=== PATIENT | female | born 1945 | race Caucasian/White ===

== ENCOUNTER 2017-01-15 16:56 | Inpatient (IN) | payer OTHER ==
--- NOTE | 2017-01-15 17:05 | PDOC ---
History of Present Illness <Erika Reddy - Last Filed: 01/15/17 18:18> - General History Source: Patient Exam Limitations: Other (altered mental status) - History of Present Illness Initial Comments: 01/15/17 17:34 The patient is a 72 year old female with a significant past medical history of hypertension, hyperlipidemia, and CAD s/p stent, brought by ambulance to the Emergency Department with altered mental status s/p fall just prior to arrival. Patient reports that she was going grocery store when she tripped on something in the road and fell. She denies loss of consciousness, and denies any pain. She admits that an ambulance was called and an ambulance brought her to the ED. Patient is poor historian due to altered mental status. The patient denies neck pain, or back pain. Patient denies head trauma, or loss of consciousness. Patient denies lightheadedness, or dizziness. Patient denies nausea, vomiting, and diarrhea. <Sirisha Lombardo - Last Filed: 01/15/17 18:56> <Marcelina Moise - Last Filed: 01/15/17 19:32> - General Stated Complaint: FALL Time Seen by Provider: 01/15/17 17:04 Past History - Past Medical History Cardiac Disorders: Yes (CAD WITH STENT) HTN: Yes Hypercholesterolemia: Yes - Surgical History Cardiac Surgery: Yes (STENT) - Immunization History Immunization Up to Date: No - Psycho/Social/Smoking Cessation Hx Anxiety: No Suicidal Ideation: No Smoking Status: No Smoking History: Never smoked Have you smoked in the past 12 months: No Number of Cigarettes Smoked Daily: 0 Hx Alcohol Use: No Drug/Substance Use Hx: No Substance Use Type: None <Erika Reddy - Last Filed: 01/15/17 18:18> <Sirisha Lombardo - Last Filed: 01/15/17 18:56> <Marcelina Moise - Last Filed: 01/15/17 19:32> - Past Medical History Allergies/Adverse Reactions: Allergies Allergy/AdvReac Type Severity Reaction Status Date / Time No Known Allergies Allergy Verified 01/15/17 17:07 Home Medications: Ambulatory Orders Unobtainable [Unobtainable] 01/15/17 Review of Systems - Review of Systems Able to Perform ROS?: Yes Comments:: 01/15/17 17:34 CONSTITUTIONAL: Absent: fever, no chills, no fatigue EYES: Absent: visual changes ENT: Absent: ear pain, no sore throat CARDIOVASCULAR: Absent: chest pain, no palpitations RESPIRATORY: Absent: cough, no SOB GI: Absent: abdominal pain, no nausea, no vomiting, no constipation, no diarrhea GENITOURINARY: Absent: dysuria, no frequency, no hematuria MUSCULOSKELETAL: Absent: back pain, no arthralgia, no myalgia SKIN: Absent: rash NEURO: Absent: headache <Sirisha Lombardo - Last Filed: 01/15/17 18:56> *Physical Exam - Vital Signs Last Vital Signs Temp Pulse Resp BP Pulse Ox 98.6 F 83 18 144/76 98 01/15/17 17:07 01/15/17 17:07 01/15/17 17:07 01/15/17 17:07 01/15/17 17:07 - Physical Exam Comments: 01/15/17 17:35 GENERAL: Patient is confused but responding to questions. Well-appearing, well- nourished. No apparent distress. HEENT: Normocephalic, atraumatic. PERRL, EOM intact. CARDIOVASCULAR: Normal S1, S2. Regular rate and rhythm. PULMONARY: Clear to auscultation bilaterally. ABDOMEN: Soft, non-distended, non-tender. EXTREMITIES: Normal ROM in all four extremities. No gross deformities. SKIN: Warm, dry. No rash NEUROLOGICAL: No focal neurological deficits. <Sirisha Lombardo - Last Filed: 01/15/17 18:56> - Vital Signs Last Vital Signs Temp Pulse Resp BP Pulse Ox 98.6 F 83 18 144/76 98 01/15/17 17:07 01/15/17 17:07 01/15/17 17:07 01/15/17 17:07 01/15/17 17:07 <Marcelina Moise - Last Filed: 01/15/17 19:32> ED Treatment Course - LABORATORY CBC & Chemistry Diagram: 01/15/17 17:10 01/15/17 17:10 <Eriak Reddy - Last Filed: 01/15/17 18:18> - LABORATORY CBC & Chemistry Diagram: 01/15/17 17:10 01/15/17 17:10 <Munira,Sirisha - Last Filed: 01/15/17 18:56> - LABORATORY CBC & Chemistry Diagram: 01/15/17 17:10 01/15/17 17:10 - ADDITIONAL ORDERS Additional order review: Laboratory Results 01/15/17 17:10 Sodium 148 H Potassium 3.9 Chloride 112 H Carbon Dioxide 25 Anion Gap 11 BUN 22 H Creatinine 1.2 H Creat Clearance w eGFR 44.16 Random Glucose 105 Calcium 8.8 Total Bilirubin 0.6 AST 28 ALT 34 Alkaline Phosphatase 59 Creatine Kinase 103 Troponin I < 0.02 Total Protein 6.7 Albumin 3.8 01/15/17 17:10 RBC 4.05 MCV 79.5 L MCHC 30.8 L RDW 23.4 H MPV 8.4 Neutrophils % 75.4 Lymphocytes % 19.6 Monocytes % 4.1 Eosinophils % 0.3 Basophils % 0.6 <Marcelina Moise - Last Filed: 01/15/17 19:32> Medical Decision Making - Medical Decision Making 01/15/17 18:18 Pt presents to the ED after found confused on the street after tripping and falling. Patient was alert and oriented x 2 on arrival to the ED and denies complaints. Case discussed with patient's friend, who reports that she has Alzheimer's and is confused at baseline. He will come to the ED to see the patient. Given history of trip and fall, will check CT head and C spine to rule out intracranial or cervical spinal injury. Fall was apparently witnessed by bystanders, and patient reports that it was a mechanical trip and fall--will do EKG and cardiac enzymes and consider admitting paitent for syncope. <Erika Reddy - Last Filed: 01/15/17 18:18> - Medical Decision Making 01/15/17 17:51 Patient's friend was called on patient's cell phone. As per patient's friend, the patient has Alzheimer's and is scheduled to go for a reevaluation with her doctor tomorrow. The patient's friend states that she is scheduled to transition to assisted living within the next two weeks. 01/15/17 18:56 As per patient's friend, patient's 's phone number is - Moises Sarmiento - and patient's daughter's phone number is . As per the patient's friend, the patient's lives in [place], and daughter lives in [facility]. The patient's will be here tomorrow. <Sirisha Lombardo - Last Filed: 01/15/17 18:56> - Medical Decision Making 01/15/17 19:30 Patient Name: Zhane Sarmiento THIS IS A PRELIMINARY REPORT FROM [employer] [employer] OPERATOR EXAM: CT head without contrast IMAGES: 141 DATE OF SERVICE: 2017-01-15 18:04 :09.0 HISTORY:Status post fall. Altered mental status. COMPARISON: CT cervical spine also performed today FINDINGS: 1. There is no evidence of an acute intracranial process, intracranial hemorrhage or mass effect. 2. Ventricular size is concordant with the degree of atrophy. 3. The visualized portions of the orbits, paranasal and mastoid sinuses are notable for partial opacification of the left mastoid sinus. 4. There appears to be a fracture through the mastoid portion of the left temporal bone. 5. There are collections of air in the left temporomandibular joint and left infratemporal fossa likely secondary to a left temporal bone fracture. 6. Left parieto-occipital scalp soft tissue swelling. THIS DOCUMENT HAS BEEN ELECTRONICALLY SIGNED Patient Name: Zhane Sarmiento THIS IS A PRELIMINARY REPORT FROM [facility] [facility] OPERATOR EXAM: CT cervical spine without contrast IMAGES: 302 DATE OF SERVICE: 01-15 18:04:09.0 HISTORY:Status post fall COMPARISON: CT head also performed today FINDINGS: 1. There is no evidence of fracture or subluxation of the cervical spine. 2. Cervical spondylosis with multiple level degenerative facet change. 3. Visualization of detail of the contents of the cervical canal is limited by artifact. 4. There is the appearance of a fracture through the mastoid portion of the left temporal bone with partial opacification of the left mastoid sinus and collections of air in the left temporomandibular joint and left infratemporal fossa. CT temporal bone may be helpful for further evaluation. 5. Calcified pleural plaque formation in the visualized portions of the lung apices bilaterally. THIS DOCUMENT HAS BEEN ELECTRONICALLY SIGNED <Marcelina Moise - Last Filed: 01/15/17 19:32> *DC/Admit/Observation/Transfer <Erika Reddy - Last Filed: 01/15/17 18:18> - Attestations Scribe Attestion: 01/15/17 17:35 Documentation prepared by Sirisha Lombardo, acting as medical research tech for Erika Reddy MD. <Sirisha Lombardo - Last Filed: 01/15/17 18:56> - Discharge Dispostion Admit: Yes <Marcelina Moise - Last Filed: 01/15/17 19:32> Diagnosis at time of Disposition: Fracture of skull with cerebral contusion, Altered mental status - Discharge Dispostion Condition at time of disposition: Guarded
[2017-01-15 17:13] VITALS: BMI 19.1
[2017-01-15 17:50] LABS: BASOPHIL 0.6 % (0-2.0); EOSINOPHIL 0.3 % (0-4.5); MCH 24.5 pg (25.7-33.7); MCHC 30.8 g/dl (32.0-36.0); MEAN CELL VOLUME 79.5 fl (80-96); MEAN PLT VOLUME 8.4 fl (7.5-11.1); NEUTROPHILS 75.4 % (42.8-82.8); PLATELET COUNT 216 K/MM3 (134-434); RDW 23.4 % (11.6-15.6); WHITE BLOOD COUNT 5.5 K/mm3 (4.0-10.0)
[2017-01-15 18:16] LABS: ANISOCYTOSIS 2+; HYPOCHROMIA 1+; MICROCYTOSIS 1+; OVALOCYTES 1+; PLATELET COMMENT2 NO CLOTTING DETECTED; PLATELET ESTIMATE ADEQUATE (NORMAL); POIKILOCYTOSIS 1+; POLYCHROMASIA 1+
[2017-01-15 18:18] LABS: ALBUMIN 3.8 g/dl (3.4-5.0); ANION GAP 11 (8-16); CALCIUM 8.8 mg/dL (8.5-10.1); CO2 25 mmol/L (21-32); CREATININE 1.2 mg/dL (0.55-1.02); GLUCOSE,RANDOM 105 mg/dL (74-106); SGOT/AST 28 U/L (15-37); SGPT/ALT 34 U/L (12-78)
[2017-01-15 18:22] LABS: ALK PHOS 59 U/L (45-117); BILIRUBIN,TOTAL 0.6 mg/dL (0.2-1.0); TOT PROT 6.7 g/dl (6.4-8.2); TROPONIN I < 0.02 ng/ml (0.00-0.05)
--- NOTE | 2017-01-15 19:28 | PN ---
<Tristen Horvath - Last Filed: 01/15/17 19:28> Teaching Attending Note Name of Resident: Dirk Pride ATTENDING PHYSICIAN STATEMENT I saw and evaluated the patient. I reviewed the resident's note and discussed the case with the resident. I agree with the resident's findings and plan as documented. SUBJECTIVE: OBJECTIVE: ASSESSMENT AND PLAN: <Nate Fry - Last Filed: 01/15/17 21:22> Teaching Attending Note ATTENDING PHYSICIAN STATEMENT I saw and evaluated the patient. I reviewed the resident's note and discussed the case with the resident. I agree with the resident's findings and plan as documented. SUBJECTIVE: The patient is a 72 year old female with a past medical history of hypertension , hyperlipidemia, alzheimer's, and CAD s/p stent, BIBA to the Emergency Department with altered mental status s/p fall just prior to arrival. Patient had a mechanical fall on road without loss of consciousness. The patient denied nausea, vomiting and diarrhea. The patient denies neck pain, or back pain. Patient denies lightheadedness, or dizziness. PAST MEDICAL HISTORY: hypertension, hyperlipidemia, alzheimer's, and CAD PAST SURGICAL HISTORY: Cardiac stents FAMILY HISTORY: No pertinent history reported SOCIAL HISTORY: None reported ALLERGIES: NKDA MEDICATIONS: As per note. OBJECTIVE: Last Vital Signs 3 Temp Pulse Resp BP Pulse Ox 98.6 F 83 18 144/76 98 01/15/17 17:07 01/15/17 17:07 01/15/17 17:07 01/15/17 17:07 01/15/17 17:07 Physical Exam: GEN: (+) A&O x1 to person HEENT: NCAT, PERRL CARD: RRR, S1 S2 RESP: CTAB ABD: NT, BWS x4 EXT: - CCE Labs: CBCD 3 WBC 5.5 K/mm3 (4.0-10.0) 01/15/17 17:10 RBC 4.05 M/mm3 (3.60-5.2) 01/15/17 17:10 Hgb 9.9 GM/dL (10.7-15.3) L 01/15/17 17:10 Hct 32.2 % (32.4-45.2) L 01/15/17 17:10 MCV 79.5 fl (80-96) L 01/15/17 17:10 MCHC 30.8 g/dl (32.0-36.0) L 01/15/17 17:10 RDW 23.4 % (11.6-15.6) H 01/15/17 17:10 Plt Count 216 K/MM3 (134-434) 01/15/17 17:10 MPV 8.4 fl (7.5-11.1) 01/15/17 17:10 CMP 3 Sodium 148 mmol/L (136-145) H 01/15/17 17:10 Potassium 3.9 mmol/L (3.5-5.1) 01/15/17 17:10 Chloride 112 mmol/L (98-107) H 01/15/17 17:10 Carbon Dioxide 25 mmol/L (21-32) 01/15/17 17:10 Anion Gap 11 (8-16) 01/15/17 17:10 BUN 22 mg/dL (7-18) H 01/15/17 17:10 Creatinine 1.2 mg/dL (0.55-1.02) H 01/15/17 17:10 Creat Clearance w eGFR 44.16 (>60) 01/15/17 17:10 Calcium 8.8 mg/dL (8.5-10.1) 01/15/17 17:10 Total Bilirubin 0.6 mg/dL (0.2-1.0) 01/15/17 17:10 AST 28 U/L (15-37) 01/15/17 17:10 ALT 34 U/L (12-78) 01/15/17 17:10 Alkaline Phosphatase 59 U/L (45-117) 01/15/17 17:10 Total Protein 6.7 g/dl (6.4-8.2) 01/15/17 17:10 Albumin 3.8 g/dl (3.4-5.0) 01/15/17 17:10 Imaging: EXAM: CT cervical spine without contrast IMAGES: 302 DATE OF SERVICE: 18:04:09.0 HISTORY:Status post fall COMPARISON: CT head also performed today FINDINGS: 1. There is no evidence of fracture or subluxation of the cervical spine. 2. Cervical spondylosis with multiple level degenerative facet change. 3. Visualization of detail of the contents of the cervical canal is limited by artifact. 4. There is the appearance of a fracture through the mastoid portion of the left temporal bone with partial opacification of the left mastoid sinus and collections of air in the left temporomandibular joint and left infratemporal fossa. CT temporal bone may be helpful for further evaluation. 5. Calcified pleural plaque formation in the visualized portions of the lung apices bilaterally. THIS DOCUMENT HAS BEEN ELECTRONICALLY SIGNED Elodia Jamison MD 01/15/2017 18:59 EST EXAM: CT head without contrast IMAGES: 141 DATE OF SERVICE: 2017-01-15 18:04: 09.0 HISTORY:Status post fall. Altered mental status. COMPARISON: CT cervical spine also performed today FINDINGS: 1. There is no evidence of an acute intracranial process, intracranial hemorrhage or mass effect. 2. Ventricular size is concordant with the degree of atrophy. 3. The visualized portions of the orbits, paranasal and mastoid sinuses are notable for partial opacification of the left mastoid sinus. 4. There appears to be a fracture through the mastoid portion of the left temporal bone. 5. There are collections of air in the left temporomandibular joint and left infratemporal fossa likely secondary to a left temporal bone fracture. 6. Left parieto-occipital scalp soft tissue swelling. THIS DOCUMENT HAS BEEN ELECTRONICALLY SIGNED Elodia Jamison MD 18:54 EST EXAM: CHEST X-RAY. IMPRESSION: No official report. ASSESSMENT AND PLAN: The patient is a 72 year old female with a past medical history of hypertension , hyperlipidemia, alzheimer's, and CAD s/p stent, who presented with AMS s/p mechanical fall found to have a left temporal fracture. 1. Left temporal fracture - Vancomycin - Cefepime - Pain control - Type and Screen - Coags - CBC - BMP - CMP - Repeat CT with focus on temporal bone - Neuro checks Q2H - Neurosurgery consult 2. HTN - Currently controlled - Continue with medications 3. HLD - unable to obtain home medications - Avoid HLD medications for now. 4. EMILY ? CKD -Gentle IVF - ID consult 5. Microcytic anemia - Iron studies in AM 6. Alzheimers - Need social work consult for placement Admit to med surg. Documentation prepared by Nate Fry, acting as medical records tech for Dr. Tristen Horvath MD.
[2017-01-15 20:41] LABS: INR 1.04 (0.82-1.09); PROTHROMBIN TIME (PATIENT) 11.5 SEC (9.98-11.88)
--- NOTE | 2017-01-15 20:43 | HP ---
CHIEF COMPLAINT: s/p mechanical fall PCP: pt does not remember HISTORY OF PRESENT ILLNESS: 72 y/o F w/PMH of HTN, HLD, alzheimers, CAD s/p stent presents to the ER via ambulance s/p mechanical fall [place] [employer]. Pt states she tripped on something on the ground and fell and hit her head on ground. She has some pain at site of hitting her head but is unable to quantify it. She denies any LOC, light-headedness, N/V/F/C, diarrhea, dysuria, frequency, blood in stool or urine , BAUM, neck pain, CP, palpitations, SOB, cough, abd pain, peripheral swelling, joint pain, visual changes, hearing changes, ringing in ears, sick contacts, recent travel history. Pt is AAOx1 (oriented to person). Friend at bedside who states she is at her baseline mental status at this time and does not notice any behavioral changes. ER course was notable for: (1) Head CT, Cervical Spine CT (2) (3) Recent Travel: denies PAST MEDICAL HISTORY: HTN, HLD, alzheimers, CAD s/p stent PAST SURGICAL HISTORY: cardiac stent Social History: Smoking: denies Alcohol: occasional Drugs: denies Family History: non-contributory Allergies No Known Allergies Allergy (Verified 01/15/17 17:07) HOME MEDICATIONS: Home Medications Medication Instructions Recorded Unobtainable [Unobtainable] 01/15/17 REVIEW OF SYSTEMS CONSTITUTIONAL: Absent: fever, chills, diaphoresis, generalized weakness, malaise HEENT: Absent: ear pain, eye pain, visual changes CARDIOVASCULAR: Absent: chest pain, syncope, palpitations, irregular heart rate, lightheadedness , peripheral edema RESPIRATORY: Absent: cough, shortness of breath, dyspnea with exertion, orthopnea, wheezing, stridor, hemoptysis GASTROINTESTINAL: Absent: abdominal pain, nausea, vomiting, diarrhea, melena, hematochezia GENITOURINARY: Absent: dysuria, frequency, urgency, hesitancy, hematuria MUSCULOSKELETAL: Absent: joint swelling, back pain, neck pain NEUROLOGIC: Absent: headache, focal weakness or paresthesias, dizziness, unsteady gait PHYSICAL EXAMINATION Vital Signs - 24 hr 01/15/17 17:07 Temperature 98.6 F Pulse Rate 83 Respiratory 18 Rate Blood Pressure 144/76 O2 Sat by Pulse 98 Oximetry (%) GENERAL: Awake, alert. oriented to self only (this is baseline according to her friend at bedside) HEAD: +L parietal hematoma with some skin scrapping. Tender to palpation in area of hematoma. EYES: Pupils equal, round and reactive to light, extraocular movements intact, sclera anicteric, conjunctiva clear. No lid lag. EARS, NOSE, THROAT: Ears normal, nares patent, Moist mucous membranes. Tongue midline. Hearing in tact. NECK: Normal range of motion, supple. No cervical spine tenderness. LUNGS: Breath sounds equal, clear to auscultation bilaterally. No wheezes, and no crackles. No accessory muscle use. HEART: Regular rate and rhythm, normal S1 and S2 without murmur, rub or gallop. ABDOMEN: Soft, nontender, not distended, normoactive bowel sounds, no guarding, no rebound, no masses. No hepatomegaly or splenomegaly. MUSCULOSKELETAL: Normal range of motion at all joints. No bony deformities or tenderness. No CVA tenderness. 5/5 b/l UE and LE strength. LOWER EXTREMITIES: 2+ pulses, warm, well-perfused. No calf tenderness. No peripheral edema. NEUROLOGICAL: B/L equal sensation to light touch on face and UE and LE. Normal speech. Gait not observed. No facial nerve palsy noted. PSYCHIATRIC: Cooperative. Good eye contact. Appropriate mood and affect. SKIN: Warm, dry. Laboratory Results - last 24 hr 01/15/17 01/15/17 17:10 17:10 WBC 5.5 RBC 4.05 Hgb 9.9 L Hct 32.2 L MCV 79.5 L MCHC 30.8 L RDW 23.4 H Plt Count 216 MPV 8.4 Neutrophils % 75.4 Lymphocytes % 19.6 Monocytes % 4.1 Eosinophils % 0.3 Basophils % 0.6 Differential Comment Slide scanned Platelet Estimate Adequate Platelet Comment No clotting detected Polychromasia 1+ Hypochromic-Microcytic 1+ Poikilocytosis 1+ Anisocytosis 2+ Microcytosis 1+ Ovalocytes 1+ Sodium 148 H Potassium 3.9 Chloride 112 H Carbon Dioxide 25 Anion Gap 11 BUN 22 H Creatinine 1.2 H Creat Clearance w eGFR 44.16 Random Glucose 105 Calcium 8.8 Total Bilirubin 0.6 AST 28 ALT 34 Alkaline Phosphatase 59 Creatine Kinase 103 Troponin I < 0.02 Total Protein 6.7 Albumin 3.8 Imaging: EXAM: CT cervical spine without contrast IMAGES: 302 DATE OF SERVICE: 18:04:09.0 HISTORY:Status post fall COMPARISON: CT head also performed today FINDINGS: 1. There is no evidence of fracture or subluxation of the cervical spine. 2. Cervical spondylosis with multiple level degenerative facet change. 3. Visualization of detail of the contents of the cervical canal is limited by artifact. 4. There is the appearance of a fracture through the mastoid portion of the left temporal bone with partial opacification of the left mastoid sinus and collections of air in the left temporomandibular joint and left infratemporal fossa. CT temporal bone may be helpful for further evaluation. 5. Calcified pleural plaque formation in the visualized portions of the lung apices bilaterally. THIS DOCUMENT HAS BEEN ELECTRONICALLY SIGNED Elodia Jamison MD 01/15/2017 18:59 EST EXAM: CT head without contrast IMAGES: 141 DATE OF SERVICE: 2017-01-15 18:04: 09.0 HISTORY:Status post fall. Altered mental status. COMPARISON: CT cervical spine also performed today FINDINGS: 1. There is no evidence of an acute intracranial process, intracranial hemorrhage or mass effect. 2. Ventricular size is concordant with the degree of atrophy. 3. The visualized portions of the orbits, paranasal and mastoid sinuses are notable for partial opacification of the left mastoid sinus. 4. There appears to be a fracture through the mastoid portion of the left temporal bone. 5. There are collections of air in the left temporomandibular joint and left infratemporal fossa likely secondary to a left temporal bone fracture. 6. Left parieto-occipital scalp soft tissue swelling. THIS DOCUMENT HAS BEEN ELECTRONICALLY SIGNED Elodia Jamison MD 18:54 EST Active Medications Cefepime HCl (Maxipime (Restricted To Id) -) 2 gm IVPB ONCE ONE PRN Reason: Protocol Stop: 01/15/17 20:48 Vancomycin HCl 1,000 mg/ (Dextrose) 250 mls @ 250 mls/hr IVPB ONCE ONE PRN Reason: Protocol Stop: 01/15/17 21:47 ASSESSMENT/PLAN: 72 y/o F w/PMH of HTN, HLD, alzheimers, CAD s/p stent presents to the ER via ambulance s/p mechanical fall [place] [employer]. Found to have fracture through the mastoid portion of the left temporal bone with partial opacification of the left mastoid sinus and collections of air in the left temporomandibular joint and left infratemporal fossa. -L temporal bone fracture s/p mechanical fall -pt's mental status at baseline -f/u official CT reports -neuro checks q2h -vanco 1g IV once and cefepime 2g IV once; ID consulted -Case discussed with neurosurgery - Dr. Gama who recommends ENT consult. -ENT consult placed -Pain control with tylenol 650 mg po q6h -EMILY due to hypovolemia possibly -no baseline Cr on file here -Cr 1.2; monitor -D5W @ 50 ml/hr; gentle hydration -Free water deficit 1.3 L -Microcytic anemia -Iron studies in AM -HTN -pt unable to remember medications or pharmacy -Alzheimer's dementia -according to friend, pt is on donepezil but is unsure of dose -DVT ppx -SCDs -FEN -D5W @ 50 ml/hr -Hypernatremia and hypercholermia, monitor -Cardiac diet -Dispo: -Admit to m/s Visit type - Emergency Visit Emergency Visit: Yes ED Registration Date: 01/15/17 Care time: The patient presented to the Emergency Department on the above date and was hospitalized for further evaluation of their emergent condition. - New Patient This patient is new to me today: Yes Date on this admission: 01/15/17 - Critical Care Critical Care patient: No
[2017-01-15] MEDS ORDERED: CEFEPIME 2 GM/100 ML BAG PRE-DOCKED IVPB ONE (20:47)
[2017-01-15] MEDS ORDERED: VANCOMYCIN 1 GRAM (PRE-DOCKED) 250 ML IVPB ONE ×2 (20:48→21:20)
[2017-01-15] MEDS ORDERED: ACETAMINOPHEN 325 MG TABLET (FP) PO PRN (20:59)
[2017-01-15] MEDS ORDERED: SODIUM CHLORIDE 1,000 ML IV SCH (21:15)
[2017-01-15] MEDS ORDERED: DEXTROSE 5%-WATER - 1,000 ML IV SCH (21:15)
[2017-01-15] MEDS ORDERED: CEFEPIME 100 ML IVPB ONE (21:20)
[2017-01-16 00:32] LABS: ANION GAP 8 (8-16); CALCIUM 8.2 mg/dL (8.5-10.1); CO2 26 mmol/L (21-32); CREATININE 1.2 mg/dL (0.55-1.02); GLUCOSE,RANDOM 188 mg/dL (74-106)
[2017-01-16 07:29] LABS: BASOPHIL 0.6 % (0-2.0); EOSINOPHIL 1.3 % (0-4.5); MCH 25.1 pg (25.7-33.7); MCHC 31.4 g/dl (32.0-36.0); MEAN CELL VOLUME 79.9 fl (80-96); MEAN PLT VOLUME 8.7 fl (7.5-11.1); NEUTROPHILS 75.1 % (42.8-82.8); PLATELET COUNT 171 K/MM3 (134-434); RDW 23.6 % (11.6-15.6); WHITE BLOOD COUNT 6.2 K/mm3 (4.0-10.0)
[2017-01-16 08:02] LABS: ALBUMIN 3.2 g/dl (3.4-5.0); ANION GAP 8 (8-16); CALCIUM 8.1 mg/dL (8.5-10.1); CO2 26 mmol/L (21-32)
[2017-01-16 08:05] LABS: ALK PHOS 49 U/L (45-117); BILIRUBIN,TOTAL 0.6 mg/dL (0.2-1.0); CREATININE 0.9 mg/dL (0.55-1.02); GLUCOSE,RANDOM 107 mg/dL (74-106); SGOT/AST 16 U/L (15-37); SGPT/ALT 25 U/L (12-78); TOT PROT 5.8 g/dl (6.4-8.2)
[2017-01-16 08:39] LABS: URINE APPEARANCE CLEAR; URINE BILIRUBIN NEGATIVE (NEGATIVE); URINE BLOOD NEGATIVE (NEGATIVE); URINE COLOR YELLOW; URINE GLUCOSE (UA) NEGATIVE (NEGATIVE); URINE KETONE TRACE (NEGATIVE); URINE LEUK ESTERASE NEGATIVE (NEGATIVE); URINE NITRITE POSITIVE (NEGATIVE); URINE UROBILINOGEN NEGATIVE E.U./dl (0.2-1.0)
[2017-01-16 08:45] LABS: URINE PROTEIN 1+ (NEGATIVE)
[2017-01-16 08:47] LABS: URINE BACTERIA MANY /hpf (NONE SEEN); URINE HYALINE CAST 3 /lpf; URINE MUCUS RARE; URINE RBC <1 /hpf (0-3); URINE WBC 8 /hpf (3-5)
--- NOTE | 2017-01-16 09:37 | PN ---
Progress Note (short form) - Note Progress Note: ID' Full note dictated Doubt acute sinusitis Could give Augmentin 875mb bid for 1 week more prophylactically Discussed with Dr Chapin ENT to see patient Yoana ACEVEDO Problem List - Problems (1) Skull fracture with cerebral contusion Code(s): S02.91XA - UNSP FRACTURE OF SKULL, INIT ENCNTR FOR CLOSED FRACTURE S06.339A - CONTUS/LAC CEREB, W LOC OF UNSP DURATION, INIT (2) Sinusitis Code(s): J32.9 - CHRONIC SINUSITIS, UNSPECIFIED
[2017-01-16] MEDS ORDERED: CEFEPIME 2 GM/100 ML BAG PRE-DOCKED IVPB ONE (10:00)
[2017-01-16] MEDS ORDERED: VANCOMYCIN 1,250 MG in DEXTROSE 5%-WATER - 250 ML IVPB ONE (10:00)
[2017-01-16] MEDS ORDERED: CEFEPIME HCL 2 GM VIAL (RESTRICTED TO ID) IVPB ONE (10:00)
[2017-01-16 11:32] VITALS: BP 124/54; PULSE 62; TEMP 97.8
--- NOTE | 2017-01-16 13:21 | MSN ---
Progress Note (short form) - Note Progress Note: Subjective: Patient was seen by me at the bedside. Patient was alert and oriented and able to answer questions. She was aware of why she was in the hospital and that she was at [facility]. Patient Stated that she feels "good" and that she "slept well". When questioned patient she denied any headache or pain in the site of fracture. Patient denies any lethargy, has been eating and drinking without problem, and has been urinating and defecating regularly. Patient also denies any fever chills, nausea vomiting, chest pain or SOB. Vital Signs Period Temp Pulse Resp BP Sys/Mckinnon Pulse Ox Last 24 Hr 97.8 F-99.2 F 56-83 18-20 124-144/48-76 98-99 Exam: General- alert and oriented in no distress Eyes- MICHAEL, EOM intact, conjunctiva and sclera are clear and uncompromised Neck- supple, no tracheal deviation, No JVD Neuro- No focal neurological deficit. CN II, III, IV, , VII, XI, and XII intact. Normal sensation on L/R face. Heart- regular rate and rhythm, normal S1 and S2, and no murmurs, rubs or gallops. Lungs- clear to auscultation bilaterally in a lung donaldson with no wheezes, rhonchi or crackles. Extremities- 5/5 muscle strength and 2/45 pulse with in tact sensation in all extremities. No lower extremity edema or swelling present. Abdomen- No guarding or distention, normoactive bowel sounds, no tenderness to palpation in a any of the four quadrants. Laboratory Results - last 24 hr 01/15/17 01/15/17 01/15/17 17:10 17:10 19:16 WBC 5.5 RBC 4.05 Hgb 9.9 L Hct 32.2 L MCV 79.5 L MCHC 30.8 L RDW 23.4 H Plt Count 216 MPV 8.4 Neutrophils % 75.4 Lymphocytes % 19.6 Monocytes % 4.1 Eosinophils % 0.3 Basophils % 0.6 Differential Comment Slide scanned Platelet Estimate Adequate Platelet Comment No clotting detected Polychromasia 1+ Hypochromic-Microcytic 1+ Poikilocytosis 1+ Anisocytosis 2+ Microcytosis 1+ Ovalocytes 1+ INR PTT (Actin FS) Sodium 148 H Potassium 3.9 Chloride 112 H Carbon Dioxide 25 Anion Gap 11 BUN 22 H Creatinine 1.2 H Creat Clearance w eGFR 44.16 Random Glucose 105 Calcium 8.8 Ferritin Total Bilirubin 0.6 AST 28 ALT 34 Alkaline Phosphatase 59 Creatine Kinase 103 Troponin I < 0.02 Total Protein 6.7 Albumin 3.8 Urine Color Yellow Urine Appearance Clear Urine pH 5.0 Ur Specific Ballantine 1.025 Urine Protein 1+ H Urine Glucose (UA) Negative Urine Ketones Trace H Urine Blood Negative Urine Nitrite Positive Urine Bilirubin Negative Urine Urobilinogen Negative Ur Leukocyte Esterase Negative Urine RBC <1 Urine WBC 8 Ur Epithelial Cells Rare Urine Bacteria Many Hyaline Casts 3 Urine Mucus Rare Blood Type Antibody Screen 01/15/17 01/15/17 01/15/17 20:20 20:20 23:55 WBC RBC Hgb Hct MCV MCHC RDW Plt Count MPV Neutrophils % Lymphocytes % Monocytes % Eosinophils % Basophils % Differential Comment Platelet Estimate Platelet Comment Polychromasia Hypochromic-Microcytic Poikilocytosis Anisocytosis Microcytosis Ovalocytes INR 1.04 PTT (Actin FS) 29.0 Sodium 144 Potassium 3.8 Chloride 110 H Carbon Dioxide 26 Anion Gap 8 BUN 20 H Creatinine 1.2 H Creat Clearance w eGFR Random Glucose 188 H D Calcium 8.2 L Ferritin Total Bilirubin AST ALT Alkaline Phosphatase Creatine Kinase Troponin I Total Protein Albumin Urine Color Urine Appearance Urine pH Ur Specific Ballantine Urine Protein Urine Glucose (UA) Urine Ketones Urine Blood Urine Nitrite Urine Bilirubin Urine Urobilinogen Ur Leukocyte Esterase Urine RBC Urine WBC Ur Epithelial Cells Urine Bacteria Hyaline Casts Urine Mucus Blood Type A NEGATIVE Antibody Screen Negative 01/16/17 01/16/17 01/16/17 06:00 06:00 06:00 WBC 6.2 RBC 3.78 Hgb 9.5 L Hct 30.2 L MCV 79.9 L MCHC 31.4 L RDW 23.6 H Plt Count 171 D MPV 8.7 Neutrophils % 75.1 Lymphocytes % 17.2 Monocytes % 5.8 Eosinophils % 1.3 D Basophils % 0.6 Differential Comment Platelet Estimate Platelet Comment Polychromasia Hypochromic-Microcytic Poikilocytosis Anisocytosis Microcytosis Ovalocytes INR PTT (Actin FS) Sodium 144 Potassium 3.6 Chloride 110 H Carbon Dioxide 26 Anion Gap 8 BUN 17 Creatinine 0.9 D Creat Clearance w eGFR > 60 Random Glucose 107 H D Calcium 8.1 L Ferritin 11.144 Total Bilirubin 0.6 AST 16 D ALT 25 D Alkaline Phosphatase 49 Creatine Kinase Troponin I Total Protein 5.8 L Albumin 3.2 L Urine Color Urine Appearance Urine pH Ur Specific Ballantine Urine Protein Urine Glucose (UA) Urine Ketones Urine Blood Urine Nitrite Urine Bilirubin Urine Urobilinogen Ur Leukocyte Esterase Urine RBC Urine WBC Ur Epithelial Cells Urine Bacteria Hyaline Casts Urine Mucus Blood Type Antibody Screen Current Medications Generic Name Dose Route Start Last Admin Trade Name Carli PRN Reason Stop Dose Admin Acetaminophen 650 mg 01/15/17 20:59 Tylenol - PO Q6H PRN PAIN Amoxicillin/Clavulanate Potassium 1 tab 01/16/17 17:30 Augmentin - 875mg Tablet PO BID@0800,1730 REYNALDO Dextrose 1,000 mls @ 50 mls/hr 01/15/17 21:15 D5w - IV ASDIR REYNALDO Imaging: Head CT (01/15/17)- suspected left temporal bone fracture Cervical Spine CT (01/15/17)- No evidence of cervical spine fracture. Fracture through the mastoid portion of the left temporal bone is present. Assessment and Plan: 72 year old female with past med history of HTN, HLD, Alzheimer, CAD, presents to the ER for fall at [employer]. Found to have a left temporal bone fracture. 1) Fracture of the left temporal bone - Acetaminophen 650 mg PO q6hrs PRN for pain - Started Amoxicillin/clavuronic acid 1 tab PO BID 2) EMILY (resolved) -secondary to hypovolemia -continue dextrose 50 mls/hr IV -current creatiine of .9 3) Microcytic Anemia -awaiting iron studies 4) HTN - cannot recall at home medications 5) Alzheimers - takes at home donazepil at an unknown dose 6) DVT Prophalxysis - SCDs F/E/N D5W @ 50 mls/hr
--- NOTE | 2017-01-16 13:59 | DS ---
Physical Exam: SUBJECTIVE: Patient seen and examined by me at bedside. Patient offers no complaints. Patient is comfortable in bed eating breakfast without difficulty or pain. Patient does have difficulty remembering her story but is able to remember falling down. Otherwise, patient denies fever, chills, nausea, vomiting, headaches, visual changes, dizziness, loss of consciousness, shortness of breath, chest pain, palpitations. OBJECTIVE: Vital Signs Period Temp Pulse Resp BP Sys/Mckinnon Pulse Ox Last 24 Hr 97.8 F-99.2 F 56-76 19-20 124-143/48-72 99-99 PHYSICAL EXAM GENERAL: The patient is awake, alert, oriented to person and place (baseline), in no acute distress. HEAD: Tenderness and hematoma in the left parietal. EYES: PERRL, extraocular movements intact, sclera anicteric, conjunctiva clear. ENT: Moist mucous membranes. NECK: Full range of motion without difficulty or pain LUNGS: Breath sounds equal, clear to auscultation bilaterally, no wheezes, no crackles, no accessory muscle use. HEART: Regular rate and rhythm, Normal S1 and S2 without murmur, rub or gallop. ABDOMEN: Soft, nontender, nondistended, normoactive bowel sounds, no guarding, no rebound. EXTREMITIES: No peripheral edema. NEUROLOGICAL: Normal speech. No focal deficits. Motor strength 5/5 bilaterally LABS Laboratory Results - last 24 hr 01/15/17 01/15/17 01/15/17 20:20 20:20 23:55 WBC RBC Hgb Hct MCV MCHC RDW Plt Count MPV Neutrophils % Lymphocytes % Monocytes % Eosinophils % Basophils % INR 1.04 PTT (Actin FS) 29.0 Sodium 144 Potassium 3.8 Chloride 110 H Carbon Dioxide 26 Anion Gap 8 BUN 20 H Creatinine 1.2 H Creat Clearance w eGFR Random Glucose 188 H D Calcium 8.2 L Ferritin Total Bilirubin AST ALT Alkaline Phosphatase Total Protein Albumin Blood Type A NEGATIVE Antibody Screen Negative 01/16/17 01/16/17 01/16/17 06:00 06:00 06:00 WBC 6.2 RBC 3.78 Hgb 9.5 L Hct 30.2 L MCV 79.9 L MCHC 31.4 L RDW 23.6 H Plt Count 171 D MPV 8.7 Neutrophils % 75.1 Lymphocytes % 17.2 Monocytes % 5.8 Eosinophils % 1.3 D Basophils % 0.6 INR PTT (Actin FS) Sodium 144 Potassium 3.6 Chloride 110 H Carbon Dioxide 26 Anion Gap 8 BUN 17 Creatinine 0.9 D Creat Clearance w eGFR > 60 Random Glucose 107 H D Calcium 8.1 L Ferritin 11.144 Total Bilirubin 0.6 AST 16 D ALT 25 D Alkaline Phosphatase 49 Total Protein 5.8 L Albumin 3.2 L Blood Type Antibody Screen EXAM: CT cervical spine without contrast IMAGES: 302 DATE OF SERVICE: 18:04:09.0 HISTORY:Status post fall COMPARISON: CT head also performed today FINDINGS: 1. There is no evidence of fracture or subluxation of the cervical spine. 2. Cervical spondylosis with multiple level degenerative facet change. 3. Visualization of detail of the contents of the cervical canal is limited by artifact. 4. There is the appearance of a fracture through the mastoid portion of the left temporal bone with partial opacification of the left mastoid sinus and collections of air in the left temporomandibular joint and left infratemporal fossa. CT temporal bone may be helpful for further evaluation. 5. Calcified pleural plaque formation in the visualized portions of the lung apices bilaterally. THIS DOCUMENT HAS BEEN ELECTRONICALLY SIGNED Elodia Jamison MD 01/15/2017 18:59 EST EXAM: CT head without contrast IMAGES: 141 DATE OF SERVICE: 2017-01-15 18:04: 09.0 HISTORY:Status post fall. Altered mental status. COMPARISON: CT cervical spine also performed today FINDINGS: 1. There is no evidence of an acute intracranial process, intracranial hemorrhage or mass effect. 2. Ventricular size is concordant with the degree of atrophy. 3. The visualized portions of the orbits, paranasal and mastoid sinuses are notable for partial opacification of the left mastoid sinus. 4. There appears to be a fracture through the mastoid portion of the left temporal bone. 5. There are collections of air in the left temporomandibular joint and left infratemporal fossa likely secondary to a left temporal bone fracture. 6. Left parieto-occipital scalp soft tissue swelling. THIS DOCUMENT HAS BEEN ELECTRONICALLY SIGNED Elodia Jamison MD 18:54 EST HOSPITAL COURSE: Patient is a 72 year old female with a PMHx of HTN, HLD, Alzheimers dementia, CAD s/p stents who presented s/p mechanical fall [place] [employer]. Patient was fond to have a fracture in the mastoid portion of the left temporal bone with partial opacification. Patient, however, denies any pain, dizziness, visual changes, loss of consciousness. Patient throughout the hospital course had no focal deficits and no complaints. Patient's and daughter report she has a history of dementia and this is her baseline. Patient however, has an appointment with [facility] [place] for the [facility] brain that took them months to book and came to hospital to pick her up and take her. Stressed to family that she will need to follow up with ENT within this week and to follow up with PMD within this week. Also advised that If she experiences worsening symptoms such as severe headache, visual changes, changes in personality, Loss of consciousness to return to the emergency department. Patient and patients verbalized understanding. Patient was discharged with a prescription for Augmentin for prophylaxis of acute sinusitis. Patient stable for discharge. Date of Admission:01/15/17 Date of Discharge: 01/16/17 Minutes to complete discharge: 35 Discharge Summary Reason For Visit: FRACTURE OF SKULL WITH CEBEBRAL CONTUSION,ALTERED Current Active Problems Altered mental status (Acute) Sinusitis (Acute) Skull fracture with cerebral contusion (Acute) Alzheimer's dementia (Chronic) Condition: Stable - Instructions Diet, Activity, Other Instructions: -You were admitted for a fracture of the mastoid portion of the left temporal bone due to a fall but not experiencing any pain or behavioral changes -You are to follow up with an ENT doctor. The information will be in the discharge packet -You will be sent home with antibiotics and instructed to take it for one week for prophylactic treatment -You may resume all your home medications -You may resume your regular diet and daily activities -If you experience worsening symptoms such as severe headache, visual changes, changes in personality, Loss of consciousness, return to the emergency department -Please follow up with your primary care physician this week. Referrals: Guilherme Lees MD [Staff Physician] - Sai Chapin MD [Staff Physician] - Disposition: HOME - Home Medications Comprehensive Discharge Medication List: Ambulatory Orders Amox-Tr/K Cl [Augmentin 875-125mg Tablet -] 1 tab PO BID #14 tablet 01/16/17 This patient is new to me today: Yes Date on this admission: 01/17/17 Emergency Visit: Yes ED Registration Date: 01/15/17 Care time: The patient presented to the Emergency Department on the above date and was hospitalized for further evaluation of their emergent condition. Critical Care patient: No - Discharge Referral Referred to [facility] No
--- NOTE | 2017-01-16 14:21 | EKG ---
Test Reason : Blood Pressure : / mmHG Vent. Rate : 068 BPM Atrial Rate : 068 BPM P-R Int : 126 ms QRS Dur : 074 ms QT Int : 428 ms P-R-T Axes : 062 063 076 degrees QTc Int : 455 ms NORMAL SINUS RHYTHM WITH SINUS ARRHYTHMIA NONSPECIFIC T WAVE ABNORMALITY ABNORMAL ECG NO PREVIOUS ECGS AVAILABLE Confirmed by RIKKI HORN MD ([id number]) on 01/16/2017 2:20:52 PM Referred By: Confirmed By:RIKKI HORN MD
--- NOTE | 2017-01-16 14:59 | PN ---
Teaching Attending Note Name of Resident: Delia Damon ATTENDING PHYSICIAN STATEMENT I saw and evaluated the patient. I reviewed the resident's note and discussed the case with the resident. I agree with the resident's findings and plan as documented. SUBJECTIVE: no complaints , no pain OBJECTIVE: Vital Signs Temperature 97.8 F 01/16/17 10:00 Pulse Rate 62 01/16/17 10:00 Respiratory Rate 20 01/16/17 10:00 Blood Pressure 124/54 01/16/17 10:00 O2 Sat by Pulse Oximetry (%) 99 01/16/17 09:00 HEAD: +L parietal hematoma with some skin scrapping. Tender to palpation in area of hematoma. EYES: Pupils equal, round and reactive to light, extraocular movements intact, sclera anicteric, conjunctiva clear. No lid lag. EARS, NOSE, THROAT: Ears normal, nares patent, Moist mucous membranes. Tongue midline. Hearing in tact. NECK: Normal range of motion, supple. No cervical spine tenderness. Abnormal Lab Results 01/15/17 01/15/17 01/15/17 17:10 17:10 19:16 Hgb 9.9 L Hct 32.2 L MCV 79.5 L MCHC 30.8 L RDW 23.4 H Sodium 148 H Chloride 112 H BUN 22 H Creatinine 1.2 H Random Glucose Calcium Total Protein Albumin Urine Protein 1+ H Urine Ketones Trace H 01/15/17 01/16/17 01/16/17 23:55 06:00 06:00 Hgb 9.5 L Hct 30.2 L MCV 79.9 L MCHC 31.4 L RDW 23.6 H Sodium Chloride 110 H 110 H BUN 20 H Creatinine 1.2 H Random Glucose 188 H D 107 H D Calcium 8.2 L 8.1 L Total Protein 5.8 L Albumin 3.2 L Urine Protein Urine Ketones ASSESSMENT AND PLAN: 1. 72 year old female s/p fall and fracture of the lanie pain is controlled will take Augmentin prophylactically will need fall precautions
[2017-01-16] MEDS ORDERED: AMOX TR/POT CLAV 875MG/125MG TABLETS (FP) PO SCH (17:30)
--- NOTE | 2017-01-16 18:35 | CON.ENT ---
Consult Consult Specialty:: OHNS Reason for Consultation:: temporal bone fx - History of Present Illness Chief Complaint: fell History of Present Illness: 72F with PMHx HTN, HL, CAD (s/p stent) hospitalized yesterday after she tripped , fell. No LOC. She denies precipitating dizziness. CT Head noted likely T bone fracture (left) also on C spine CT. She denies headaches, pain, hearing loss, tinnitus, dizziness, salty taste in throat. OHNS consulted this morning to evaluate. - History Source History Provided By: Patient - Past Medical History ...: No - Alcohol/Substance Use Hx Alcohol Use: No - Smoking History Smoking history: Never smoked Have you smoked in the past 12 months: No Aproximately how many cigarettes per day: 0 Home Medications - Allergies Allergies/Adverse Reactions: Allergies Allergy/AdvReac Type Severity Reaction Status Date / Time No Known Allergies Allergy Verified 01/15/17 17:07 - Home Medications Home Medications: Ambulatory Orders Amox-Tr/K Cl [Augmentin 875-125mg Tablet -] 1 tab PO BID #14 tablet 01/16/17 Physical Exam-ENT Vital Signs: Vital Signs Temperature 97.8 F 01/16/17 10:00 Pulse Rate 62 01/16/17 10:00 Respiratory Rate 20 01/16/17 10:00 Blood Pressure 124/54 01/16/17 10:00 O2 Sat by Pulse Oximetry (%) 99 01/16/17 09:00 Constitutional: Yes: Well Nourished, No Distress, Calm, Other (sitting in [employer] looking at window, eating.) Head: Yes: WNL Face: Yes: WNL, Other (no TMJ ttp. no crepitance. no trismus) Eyes: Yes: WNL Nose: Yes: WNL Oral/Pharynx: Yes: WNL Outer Ear: Yes: WNL Ear Canal: Yes: Cerumen Respiratory: Yes: Regular Neurological: Yes: Other (CN3-7,11,12 intact) Imaging - Results Cat Scan: Report Reviewed (very well aerated and pneumatized temporal bones. neither was a temporal bone study and so difficult to assess -- possibly a few air cells with fluid/blood. suggestion of tmeporal bone fx (left). some air around L TMJ and IT fossa c/w fx.), Image Reviewed Problem List - Problems (1) Temporal bone fracture Assessment/Plan: Limited view of the ear with the cerumen, though radiographically the middle ear is aerated. -The fracture appears quite minimal, though is optimally visualized with a CT Temporal Bone study (noncontrast). If there is any fracture in proximity to the carotid canal, a CTA would be advised. - No facial asymmetry or subjective hearing loss. - Patient should see me in two weeks with a hearing test. Can clean the ear and more fully evaluate. - No surgical intervention advised. Thank you for this consultation. Code(s): S02.19XA - OTH FRACTURE OF BASE OF SKULL, INIT FOR CLOS FX Qualifiers : Encounter type: initial encounter
--- NOTE | 2017-01-16 22:47 | CONS ---
DATE OF CONSULTATION: DATE OF DICTATION: 01/16/2017 This is a 72-year-old woman with a history of Alzheimer's, who lives at home, who I am asked to see for possible sinusitis. She has a history of hypertension, coronary artery disease with stents, and has Alzheimer dementia. She apparently lives at home and does her own food shopping and apparently fell, losing her balance while at [employer], sustaining a fall, in which she hit the left side of her head but denied any loss of consciousness. Here, she was found to be neurologically intact. A CAT scan of the head showed no evidence of acute injury. However, a fracture through the mastoid portion of the left temporal bone with opacification of the left mastoid sinus was seen, and collections of air in the left temporomandibular joint and left infratemporal fossa were noted. ENT consultation has been requested. The patient, on exam, is lying in bed comfortable, eating her breakfast, neurologically intact, and able to answer questions appropriately. PAST MEDICAL HISTORY: As noted above. Medications at home currently unknown. ALLERGIES: None known. SOCIAL HISTORY: Nonsmoker. No history of alcohol use. HIV status unknown. FAMILY HISTORY: Patient cannot provide. REVIEW OF SYSTEMS: Respiratory: No cough, shortness of breath, hemoptysis. Cardiac: No history of murmur, chest pain, palpitations. Gastrointestinal: No nausea, vomiting, abdominal pain, diarrhea. Genitourinary: No dysuria, hematuria, urinary frequency. PHYSICAL EXAMINATION: General: She is an alert female in no acute distress. Vital Signs: Temperature was 99, pulse 58, blood pressure 143/66, respirations 20. HEENT: Revealed a tender hematoma on the left parietal area. Neck: Supple. Full range of motion. Lungs: Clear. Heart: S1, S2. Regular rhythm without murmur. Abdomen: Soft, nontender, without organomegaly. Extremities: Without clubbing, cyanosis or edema. The white count was 6.2, hemoglobin 9.5, platelets of 171. BUN 22, creatinine 1.2, creatinine clearance 44, liver enzymes within normal limits. UA with 1 RBC, 8 WBCs, and many bacteria noted. ASSESSMENT: A 72-year-old female with dementia, status post mechanical fall at the supermarket yesterday, sustaining a fracture through the mastoid portion of the left temporal bone with partial opacification of the left mastoid sinus. This most likely, on the basis of blood related to acute injury, clinically she does not have evidence of acute sinusitis by way of fever, chills, or ENT complaints. ENT consultation with Dr. Chapin is currently pending. She has been given a dose of vancomycin and Zosyn and cefepime but I do not feel she needs continued parenteral antibiotics. I will put her on Augmentin 875 mg p.o. b.i.d. prophylactically for the possibility of development of sinusitis in the setting of acute trauma. [place] ADHIKARI M.D. [id number]
[2017-01-17 06:09] LABS: SERUM IRON 35 ug/dL (27-139); TOTAL IRON BINDING CAPACITY 280 ug/dL (250-450); UIBC 245 ug/dL (118-369)
== END 2017-01-16 14:16 | disposition home or self-care (01) | DRG 86 ==
LOC: JER 16:56 → JERBED 19:33 → J8W 01-16 01:36
PROVIDERS: ADMIT Internal Medicine; ATTEND Internal Medicine
DX: S02.19XA Other fracture of base of skull, initial encounter for closed fracture (principal); N17.9 Acute kidney failure, unspecified; E87.0 Hyperosmolality and hypernatremia; I10 Essential (primary) hypertension; E78.5 Hyperlipidemia, unspecified; I25.10 Atherosclerotic heart disease of native coronary artery without angina pectoris; G30.9 Alzheimer's disease, unspecified; F02.80 Dementia in other diseases classified elsewhere, unspecified severity, without behavioral disturbance, psychotic disturbance, mood disturbance, and anxiety; E86.1 Hypovolemia; J32.9 Chronic sinusitis, unspecified; W01.198A Fall on same level from slipping, tripping and stumbling with subsequent striking against other object, initial encounter; Y93.89 Activity, other specified; Y92.488 Other paved roadways as the place of occurrence of the external cause; Y99.8 Other external cause status
CPT/HCPCS: 36415; 70450-TC; 71010-TC; 72125-TC; 80048; 80053; 81003; 81015; 82550; 82728; 83540; 83550; 84484; 85025; 85610; 85730; 86850; 86900; 86901; 87086; 93005; 93010; 99285-25